=== PATIENT | female | born 1970 | race Caucasian/White ===

== ENCOUNTER → 2018-05-31 08:59 | Outpatient (CLI) | payer OTHER, SELFPAY ==
[2018-05-31 10:45] LABS: Free T3, Triiodothyronine Free 4.05 pg/mL (2.77-5.27); Free T4, Direct Thyroxine 0.87 ng/dL (0.78-2.19)
[2018-05-31 10:59] LABS: Thyroid Stimulating Hormone 2.87 uIU/mL (0.47-4.68)
== END ==
PROVIDERS: PCP Naturopath; Visit Provider Naturopath
DX: E03.9 Hypothyroidism, unspecified (principal)
CPT/HCPCS: 36415; 84439; 84443; 84481

== ENCOUNTER → 2019-04-02 08:22 | Outpatient (CLI) | payer OTHER, SELFPAY ==
--- NOTE | 2019-04-02 | DI.MG.S_ITS ---
BILATERAL DIGITAL SCREENING MAMMOGRAM 3D/2D WITH CAD: 04/02/2019 CLINICAL: Routine screening. Comparison is made to exam dated: 06/27/2013 mammogram - [facility]. The tissue of both breasts is heterogeneously dense. This may lower the sensitivity of mammography. Current study was also evaluated with a Computer Aided Detection (CAD) system. No significant masses, calcifications, or other findings are seen in either breast. There has been no significant interval change. IMPRESSION: NEGATIVE There is no mammographic evidence of malignancy. A 1 year screening mammogram is recommended. This exam was interpreted at Station ID: [id number]. NOTE: For mammograms, a report in lay terms will be sent to the patient. Approximately 15% of breast malignancies will not be visualized mammographically. In the management of a palpable breast mass, a negative mammogram must not discourage biopsy of a clinically suspicious lesion. Electronically Signed By: Rodo bolton/maxwell:04/02/2019 09:13:41 letter sent: Normal Exam ACR BI-RADS Category 1: Negative 3341F
== END ==
PROVIDERS: PCP General Practice; Visit Provider General Practice
DX: Z12.31 Encounter for screening mammogram for malignant neoplasm of breast (principal)
CPT/HCPCS: 77063; 77067

== ENCOUNTER → 2019-05-03 10:41 | Outpatient (CLI) | payer OTHER, SELFPAY | PROVIDERS: PCP General Practice; Visit Provider Naturopath | DX: R00.1 Bradycardia, unspecified (principal) | CPT/HCPCS: 93005 ==

== ENCOUNTER → 2019-11-29 09:18 | Outpatient (CLI) | payer OTHER, SELFPAY ==
[2019-11-29 10:18] LABS: Free T4, Direct Thyroxine 0.65 ng/dL (0.78-2.19)
[2019-11-29 10:32] LABS: Thyroid Stimulating Hormone 3.14 uIU/mL (0.47-4.68)
[2019-11-29 13:46] LABS: Free T3, Triiodothyronine Free 3.36 pg/mL (2.77-5.27)
== END ==
PROVIDERS: PCP General Practice; Visit Provider Naturopath
DX: E03.9 Hypothyroidism, unspecified (principal)
CPT/HCPCS: 36415; 84439; 84443; 84481

== ENCOUNTER → 2020-06-10 17:09 | Outpatient (CLI) | payer OTHER, SELFPAY ==
--- NOTE | 2020-06-10 | DI.MG.S_ITS ---
BILATERAL DIGITAL SCREENING MAMMOGRAM 3D/2D WITH CAD: 06/10/2020 CLINICAL: Routine screening. Comparison is made to exams dated: 04/02/2019 mammogram - [facility], 06/27/2013 mammogram, and 06/27/2013 mammogram - [facility]. The tissue of both breasts is heterogeneously dense. This may lower the sensitivity of mammography. Current study was also evaluated with a Computer Aided Detection (CAD) system. No significant masses, calcifications, or other findings are seen in either breast. There has been no significant interval change. IMPRESSION: NEGATIVE There is no mammographic evidence of malignancy. A 1 year screening mammogram is recommended. This exam was interpreted at Station ID: [id number]. NOTE: For mammograms, a report in lay terms will be sent to the patient. Approximately 15% of breast malignancies will not be visualized mammographically. In the management of a palpable breast mass, a negative mammogram must not discourage biopsy of a clinically suspicious lesion. Electronically Signed By: Sade gongora/maxwell:06/11/2020 08:51:44 letter sent: Normal Exam ACR BI-RADS Category 1: Negative 3341F
== END ==
PROVIDERS: PCP General Practice; Referring Provider General Practice; Visit Provider General Practice
DX: Z12.31 Encounter for screening mammogram for malignant neoplasm of breast (principal)
CPT/HCPCS: 77063; 77067

== ENCOUNTER → 2021-07-15 16:45 | Outpatient (CLI) | payer OTHER, SELFPAY ==
--- NOTE | 2021-07-15 16:46 | DI.MG.S_ITS ---
BILATERAL DIGITAL SCREENING MAMMOGRAM 3D/2D WITH CAD: 07/15/2021 CLINICAL: Routine screening. Comparison is made to exams dated: 06/10/2020 mammogram, 04/02/2019 mammogram - [facility], and 06/27/2013 mammogram - [facility]. The tissue of both breasts is heterogeneously dense. This may lower the sensitivity of mammography. Current study was also evaluated with a Computer Aided Detection (CAD) system. No significant masses, calcifications, or other findings are seen in either breast. There has been no significant interval change. IMPRESSION: NEGATIVE There is no mammographic evidence of malignancy. A 1 year screening mammogram is recommended. This exam was interpreted at Station ID: [id number]. NOTE: For mammograms, a report in lay terms will be sent to the patient. Approximately 15% of breast malignancies will not be visualized mammographically. In the management of a palpable breast mass, a negative mammogram must not discourage biopsy of a clinically suspicious lesion. Electronically Signed By: Rodo bolton/maxwell:07/16/2021 07:16:17 letter sent: Normal Exam ACR BI-RADS Category 1: Negative 3341F
== END ==
PROVIDERS: PCP General Practice; Referring Provider General Practice; Visit Provider General Practice
DX: Z12.31 Encounter for screening mammogram for malignant neoplasm of breast (principal)
CPT/HCPCS: 77063; 77067

== ENCOUNTER → 2022-07-28 11:11 | Outpatient (CLI) | payer OTHER, SELFPAY ==
--- NOTE | 2022-07-28 11:13 | DI.MG.S_ITS ---
BILATERAL DIGITAL SCREENING MAMMOGRAM 3D/2D WITH CAD: 07/28/2022 CLINICAL: Routine screening. Comparison is made to exams dated: 07/15/2021 mammogram, 06/10/2020 mammogram, and 04/02/2019 mammogram - [facility]. Both breasts are heterogeneously dense, which may obscure small masses (category c / 51-75% glandular tissue). Current study was also evaluated with a Computer Aided Detection (CAD) system. No significant masses, calcifications, or other findings are seen in either breast. There has been no significant interval change. IMPRESSION: NEGATIVE There is no mammographic evidence of malignancy. A 1 year screening mammogram is recommended. Based on the Tyrer Cuzick model (a risk assessment model) the patient's lifetime risk is 13.8% and her 10 year risk is 3.6%. According to the ACR, ACS, and NCCN guidelines, an annual breast MRI exam along with mammogram is recommended if the patient's lifetime risk is 20% or greater. This exam was interpreted at Station ID: [id number]. NOTE: For mammograms, a report in lay terms will be sent to the patient. Approximately 15% of breast malignancies will not be visualized mammographically. In the management of a palpable breast mass, a negative mammogram must not discourage biopsy of a clinically suspicious lesion. Electronically Signed By: Irma dias/maxwell:07/28/2022 13:16:05 letter sent: Normal Exam ACR BI-RADS Category 1: Negative 3341F
== END ==
PROVIDERS: PCP General Practice; Referring Provider General Practice; Visit Provider General Practice
DX: Z12.31 Encounter for screening mammogram for malignant neoplasm of breast (principal)
CPT/HCPCS: 77063; 77067

== ENCOUNTER → 2022-09-01 09:23 | Outpatient (CLI) | payer OTHER, SELFPAY ==
[2022-09-02 05:18] LABS: Hepatitis A Ab Total Negative (Negative)
[2022-09-02 10:01] LABS: Mumps Virus IgG Antibody 74.6 AU/mL (Immune >10.9); Rubeola Measles IgG > 300.0 AU/mL (Immune >16.4); Varicella IgG Antibody 2449 index (Immune >165)
[2022-09-02 15:36] LABS: Rubella Antibody IgG 74.8 IU/mL (>15)
[2022-09-03 18:13] LABS: QuantiFERON Mitogen Value >10.00 IU/mL (.); QuantiFERON Nil Value 0.17 IU/mL (.); QuantiFERON TB Gold Plus Positive (Negative); QuantiFERON TB1 Ag Value 2.88 IU/mL (.); QuantiFERON TB2 Ag Value 3.16 IU/mL (.)
== END ==
PROVIDERS: PCP General Practice; Referring Provider General Practice; Visit Provider General Practice
DX: Z13.9 Encounter for screening, unspecified (principal); Z01.83 Encounter for blood typing
CPT/HCPCS: 36415; 86480; 86658; 86708; 86735; 86762; 86765; 86787

== ENCOUNTER → 2023-09-08 11:25 | Outpatient (CLI) | payer OTHER, SELFPAY ==
--- NOTE | 2023-09-08 | DI.MG.S_ITS ---
BILATERAL DIGITAL SCREENING MAMMOGRAM 3D/2D WITH CAD: 09/08/2023 CLINICAL: Routine screening. Comparison is made to exams dated: 07/15/2021 mammogram, 07/28/2022 mammogram, and 06/10/2020 mammogram - [facility]. Both breasts are heterogeneously dense, which may obscure small masses (category c / 51-75% glandular tissue). Current study was also evaluated with a Computer Aided Detection (CAD) system. No significant masses, calcifications, or other findings are seen in either breast. There has been no significant interval change. IMPRESSION: NEGATIVE There is no mammographic evidence of malignancy. A 1 year screening mammogram is recommended. Based on the Tyrer Cuzick model (a risk assessment model) the patient's lifetime risk is 13.6% and her 10 year risk is 3.8%. According to the ACR, ACS, and NCCN guidelines, an annual breast MRI exam along with mammogram is recommended if the patient's lifetime risk is 20% or greater. This exam was interpreted at Station ID: [id number]. NOTE: For mammograms, a report in lay terms will be sent to the patient. Approximately 15% of breast malignancies will not be visualized mammographically. In the management of a palpable breast mass, a negative mammogram must not discourage biopsy of a clinically suspicious lesion. Electronically Signed By: Jarrod swartz/maxwell:09/08/2023 16:41:37 letter sent: Normal Exam ACR BI-RADS Category 1: Negative 3341F
== END ==
PROVIDERS: PCP General Practice; Referring Provider General Practice; Visit Provider General Practice
DX: Z12.31 Encounter for screening mammogram for malignant neoplasm of breast (principal)
CPT/HCPCS: 77063; 77067

== ENCOUNTER → 2023-10-11 08:59 | Outpatient (CLI) | payer OTHER, SELFPAY ==
--- NOTE | 2023-10-11 | DI.RAD.S_ITS ---
PROCEDURE: XR FOOT LT MIN 3V INDICATIONS: PAIN IN LEFT FOOT TECHNIQUE: 3 views of the foot were acquired. COMPARISON: [facility], CR, XR FOOT 3+ VIEWS LEFT, 01/21/2021, 10:02. FINDINGS: Bones: No fractures or dislocations. No suspicious bony lesions. Moderate osteoarthritic changes, most pronounced at the 2nd and 3rd tarsometatarsal joints. Note is made of bipartite medial sesamoid. Soft tissues: No tibiotalar joint effusion. Achilles tendon appears normal. IMPRESSION: 1. No acute bony abnormality. 2. Moderate osteoarthritis. Dictated by: Madison Labm M.D. on 10/11/2023 at 14:32 Approved by: Madison Lamb M.D. on 10/11/2023 at 15:10
== END ==
PROVIDERS: PCP General Practice; Referring Provider General Practice; Visit Provider General Practice
DX: M79.672 Pain in left foot (principal); M19.072 Primary osteoarthritis, left ankle and foot
CPT/HCPCS: 73630

== ENCOUNTER → 2024-10-04 14:13 | Outpatient (CLI) | payer OTHER, SELFPAY ==
--- NOTE | 2024-10-04 14:14 | DI.MG.S_ITS ---
BILATERAL DIGITAL SCREENING MAMMOGRAM 3D/2D WITH CAD: 10/04/2024 CLINICAL: Routine screening. Comparison is made to exams dated: 09/08/2023 mammogram, 07/28/2022 mammogram, and 07/15/2021 mammogram - [facility]. The breasts are heterogeneously dense, which may obscure small masses (category c / 51-75% glandular tissue). Current study was also evaluated with a Computer Aided Detection (CAD) system. There is an asymmetry in the left breast anterior depth central to the nipple seen on the craniocaudal view only. No other significant masses, calcifications, or other findings are seen in either breast. IMPRESSION: INCOMPLETE: NEED ADDITIONAL IMAGING EVALUATION The asymmetry in the left breast is indeterminate. A diagnostic mammogram and ultrasound is recommended. Based on the Tyrer Cuzick model (a risk assessment model) the patient's lifetime risk is 13.5% and her 10 year risk is 3.9%. According to the ACR, ACS, and NCCN guidelines, an annual breast MRI exam along with mammogram is recommended if the patient's lifetime risk is 20% or greater. This exam was interpreted at Station ID: [id number]. NOTE: For mammograms, a report in lay terms will be sent to the patient. Approximately 15% of breast malignancies will not be visualized mammographically. In the management of a palpable breast mass, a negative mammogram must not discourage biopsy of a clinically suspicious lesion. Electronically Signed By: Jaymie Dickens M.D., Ph.D. eb/:10/04/2024 17:48:07 letter sent: Additional Imaging Needed ACR BI-RADS Category 0: Incomplete: Need Additional Imaging Evaluation
== END ==
PROVIDERS: PCP General Practice; Referring Provider General Practice; Visit Provider General Practice
DX: Z12.31 Encounter for screening mammogram for malignant neoplasm of breast (principal); R92.333 Mammographic heterogeneous density, bilateral breasts
CPT/HCPCS: 77063; 77067

== ENCOUNTER → 2024-12-06 10:33 | Outpatient (CLI) | payer OTHER, SELFPAY ==
--- NOTE | 2024-12-06 10:35 | DI.US.S_ITS ---
LIMITED ULTRASOUND OF LEFT BREAST AND AXILLA: 12/06/2024 CLINICAL: Patient returns today to evaluate an asymmetry in the left breast. Comparison is made to exams dated: 12/06/2024 mammogram, 10/04/2024 mammogram, 09/08/2023 mammogram, 07/28/2022 mammogram, 07/15/2021 mammogram, and 06/10/2020 mammogram - [facility]. Color flow and real-time ultrasound of the left breast 11 o'clock, and axilla regions were performed. Jones scale images of the real-time examination were reviewed. There is a 0.6 cm x 0.4 cm x 0.5 cm wider than tall oval cyst in the left breast at 11 o'clock anterior depth 2 cm from the nipple. This oval cyst is hypoechoic with internal echoes and no posterior acoustic shadowing or enhancement. This correlates with mammography findings. Color flow imaging demonstrates that there is no vascularity present. IMPRESSION: PROBABLY BENIGN The 0.6 cm x 0.4 cm x 0.5 cm wider than tall oval cyst in the left breast resembles a complicated cyst and is probably benign. A follow-up left mammogram and an ultrasound in 6 months is recommended to demonstrate stability. Findings and recommendations were conveyed to the patient during today's evaluation. This exam was interpreted at Station ID: [id number]. Electronically Signed By: Rodo Ga M.D. at/:12/06/2024 12:14:37 letter sent: Followup Recommended ACR BI-RADS Category 3: Probably Benign
--- NOTE | 2024-12-06 10:35 | DI.MG.S_ITS ---
UNILATERAL LEFT DIGITAL DIAGNOSTIC MAMMOGRAM 3D/2D WITH ADDITIONAL VIEWS SPOT COMPRESSION: 12/06/2024 CLINICAL: Additional evaluation requested from prior study. Comparison is made to exams dated: 10/04/2024 mammogram, 09/08/2023 mammogram, and 07/28/2022 mammogram - [facility]. The breasts are heterogeneously dense, which may obscure small masses (category c / 51-75% glandular tissue). There is a 0.7 cm oval equal density focal asymmetry in the left breast at 11 o'clock anterior depth. This is seen in additional views. No other significant masses or calcifications are seen in the breast. IMPRESSION: INCOMPLETE: NEED ADDITIONAL IMAGING EVALUATION The 0.7 cm oval equal density focal asymmetry in the left breast resembles a cyst or a lymph node and is indeterminate. An ultrasound is recommended for further evaluation and is scheduled to immediately follow this examination. Based on the Tyrer Cuzick model (a risk assessment model) the patient's lifetime risk is 13.4% and her 10 year risk is 4.1%. According to the ACR, ACS, and NCCN guidelines, an annual breast MRI exam along with mammogram is recommended if the patient's lifetime risk is 20% or greater. This exam was interpreted at Station ID: [id number]. NOTE: For mammograms, a report in lay terms will be sent to the patient. Approximately 15% of breast malignancies will not be visualized mammographically. In the management of a palpable breast mass, a negative mammogram must not discourage biopsy of a clinically suspicious lesion. Electronically Signed By: Rodo Ga M.D. aty/:12/06/2024 12:12:16 letter sent: Additional Imaging Needed ACR BI-RADS Category 0: Incomplete: Need Additional Imaging Evaluation
== END ==
PROVIDERS: PCP General Practice; Referring Provider Family Medicine; Visit Provider Family Medicine
DX: R92.8 Other abnormal and inconclusive findings on diagnostic imaging of breast (principal); N60.02 Solitary cyst of left breast; R92.333 Mammographic heterogeneous density, bilateral breasts
CPT/HCPCS: 76642; 77065; G0279

== ENCOUNTER → 2025-06-12 11:36 | Outpatient (CLI) | payer OTHER, SELFPAY ==
[2025-06-12 11:59] LABS: Hematocrit 39.2 % (36-46); Hemoglobin 13.6 g/dL (12.0-16.0)
== END ==
PROVIDERS: PCP Family Medicine; Referring Provider Specialist; Visit Provider Specialist
DX: D75.1 Secondary polycythemia (principal)
CPT/HCPCS: 36415; 85014; 85018

== ENCOUNTER → 2025-06-17 14:38 | Outpatient (CLI) | payer OTHER, SELFPAY ==
--- NOTE | 2025-06-17 14:39 | DI.US.S_ITS ---
PROCEDURE: US PELVIC COMPLETE INDICATIONS: POSTMENOPAUSAL BLEEDING TECHNIQUE: Real-time scanning was performed of the pelvic organs, with image documentation. Additional endovaginal scanning was necessary due to incomplete visualization of the adnexal and endometrial structures by transabdominal scanning. COMPARISON: None. FINDINGS: Uterus: Uterus is anteverted and normal in size at 7.4 x 5.5 x 4.5 cm. The myometrium is heterogeneous. The endometrium measures 5 mm combined thickness. Right anterior intramural fibroid measuring 1.4 x 1.6 x 1.1 cm Ovaries: The right ovary measures 1.0 x 1.0 x 2.5 cm, with a calculated ovarian volume of 1 cc. The left ovary measures 1.5 x 1.3 x 3.2 cm, with a calculated ovarian volume of 3 cc. The ovaries have a normal sonographic appearance. Less than 12 follicles can be seen in each ovary. No adnexal masses are seen. Other: No pathologic free abdominal or pelvic fluid. IMPRESSION: Intramural uterine fibroid measuring up to 1.6 cm. Endometrial thickness of 5 mm, upper limits of normal in postmenopausal patients. Approved by: Jaymie Dickens M.D.,Ph.D. on 06/18/2025 at 0:03
== END ==
LOC: US 14:39
PROVIDERS: PCP Family Medicine; Referring Provider Family Medicine; Visit Provider Specialist
DX: N95.0 Postmenopausal bleeding (principal); D25.1 Intramural leiomyoma of uterus
CPT/HCPCS: 76830; 76856